=== PATIENT | female | born 1960 | race Caucasian/White ===

== ENCOUNTER → 2020-12-08 | Outpatient (CLI) | payer OTHER ==
[~2020-12-08] MED LIST: AMBIEN10 MG PO; CYANOCOBAL1000 MCG/1 INJ; CYMBALTA60 MG PO; LEVOTHYROXINE125 MC1 PO; LINZESS290 MCG PO; ULTRAM50 MG PO; VITAMIN D21250 MCG PO; WELLBUTRIN XL150 MG PO
[2020-12-08 10:41] LABS: HEMOGLOBIN 13.8 gm/dl (12.3-15.3); RED BLOOD COUNT 4.75 M/UL (4.00-5.10); WHITE BLOOD COUNT 6.1 K/UL (4.5-11.0)
== END ==
LOC: OPSV2 09:00
PROVIDERS: Orthopaedic Surgery
DX: Z01.812 Encounter for preprocedural laboratory examination (principal); G56.02 Carpal tunnel syndrome, left upper limb
CPT/HCPCS: 36415; 85025

== ENCOUNTER → 2020-12-12 | Day surgery (SDC) | payer OTHER | END | disposition home or self-care (01) | LOC: OR 06:23 | DX: G56.03 Carpal tunnel syndrome, bilateral upper limbs (principal); M77.8 Other enthesopathies, not elsewhere classified; E03.9 Hypothyroidism, unspecified; K21.9 Gastro-esophageal reflux disease without esophagitis; M79.7 Fibromyalgia; F41.9 Anxiety disorder, unspecified; F32.9 Major depressive disorder, single episode, unspecified; Z91.010 Allergy to peanuts; Z91.018 Allergy to other foods; Z79.899 Other long term (current) drug therapy | CPT/HCPCS: J1100; J1885; J2250; J2405; J2704; J3010; J7120 ==